=== PATIENT | female | born 1980 | race Caucasian/White ===

== ENCOUNTER 2017-06-04 22:57 | Emergency (ER) | payer OTHER ==
[~2017-06-04 22:57] MED LIST: AMOXICILLIN500 M1 PO; AMOXIL500 MG PO; CLINDAMYCIN HY300 MG PO; CLONIDINE HCL0.1 MG; FLEXERIL10 MG PO; IBU800 MG PO; IBUPROFEN800 M1 PO; LAMOTRIGINE25 M3; LIDOCAINE VISC100 M2 PO; METHADONE H5 MG/5 M2 PO; NICOTINE PATCH1 EAC2 TOP; PERCOCET 5-3251 EACH PO; QUETIAPINE FUM100 M1 PO; VITAFOL-ONE CA1 EACH PO
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
[2017-06-04 23:26] VITALS: BP 124/84
[2017-06-04 23:57] LABS: ABSOLUTE BASOPHIL COUNT 0.1 /CUMM (0.0-0.2); ABSOLUTE EOSINOPHIL COUNT 0.2 /CUMM (0.0-0.7); ABSOLUTE GRANULOCYTE CT 2.7 /CUMM (1.4-6.5); ABSOLUTE LYMPH COUNT 1.9 /CUMM (1.2-3.4); ABSOLUTE MONOCYTE COUNT 0.4 /CUMM (0.10-0.60); BASOPHIL % 2.4 % (0.0-2.0); EOSINOPHIL % 3.7 % (0-5); GRANULOCYTE % 51.2 % (42.2-75.2); HEMATOCRIT 39.7 % (37-47); MEAN CORPUSCULAR HGB 29.5 PG (27.0-31.0); MEAN CORPUSCULAR VOLUME 86.6 FL (81.0-99.0); MEAN PLATELET VOLUME 8.4 FL (7.4-10.4); PLATELET COUNT 229 /CUMM (130-400); RBC DISTRIBUTION WIDTH 13.4 % (11.5-14.5); RED BLOOD CELL CT 4.58 /CUMM (4.20-5.40); WHITE BLOOD CELL COUNT 5.3 /CUMM (4.8-10.8)
== END 2017-06-05 00:20 | disposition left against medical advice (07) ==
LOC: ERH 22:57
PROVIDERS: Pediatrics
DX: R07.81 Pleurodynia (principal); R10.10 Upper abdominal pain, unspecified; V47.5XXA Car driver injured in collision with fixed or stationary object in traffic accident, initial encounter; Y92.9 Unspecified place or not applicable
CPT/HCPCS: G0480